=== PATIENT | male | born 1975 | race African-American/Black ===

== ENCOUNTER 2017-05-20 23:20 | Emergency (ER) | payer SELFPAY ==
[~2017-05-20] VITALS: Ht 177.8 cm; Wt 93.9 kg
[2017-05-20 23:39] VITALS: BP 128/99
== END 2017-05-21 00:37 | disposition left against medical advice (07) ==
LOC: EME 23:20
DX: S61.412A Laceration without foreign body of left hand, initial encounter (principal); Z53.21 Procedure and treatment not carried out due to patient leaving prior to being seen by health care provider